=== PATIENT | female | born 1930 | race Caucasian/White ===

== ENCOUNTER 2017-07-29 17:34 | Emergency (ER) | payer OTHER, MEDICAID ==
[~2017-07-29] VITALS: Ht 162.6 cm; Wt 68.0 kg
[~2017-07-29 17:34] MED LIST: ALEN70TA3 PO; ASPI81TA44 PO; ATOR40TA PO; CALC-21 PO; CHOL200074 PO; IBUP200C76 PO; LEVO75TA7 PO; LIDOCAINE PATCH 5% TD; LISI1TAB13 PO; MELA1TAB2 SL; METF10002 PO; MIRT15TA7 PO; MULT-67 PO; OMEP20TA5 PO; UBID200C13 PO; [UNRECOGNIZED DRUG - OTHER] PO
[2017-07-29] MEDS ORDERED: ASPI-605 PO (18:10)
[2017-07-29] MEDS ORDERED: BIFI10.5 PO (18:10)
[2017-07-29] MEDS ORDERED: TRAM50TA2 PO (18:10)
[2017-07-29] MEDS ORDERED: LIDO30AD10 TD (18:10)
[2017-07-29] MEDS ORDERED: CYAN100T3 PO (18:10)
[2017-07-29] MEDS ORDERED: SENN8.6T60 PO (18:10)
[2017-07-29 18:19] LABS: BASOPHILS % (AUTO) 0.4 % (0.0-2.0); EOSINOPHILS # (AUTO) 0.1 K/uL (0.0-0.7); EOSINOPHILS % (AUTO) 0.6 % (0.0-7.0); HEMATOCRIT 40.3 % (37-47); HEMOGLOBIN 13.4 G/DL (12.0-16.0); LYMPHOCYTES # (AUTO) 0.9 K/UL (0.8-4.8); LYMPHOCYTES % (AUTO) 8.3 % (20.5-51.5); MEAN CORPUSCULAR HEMOGLOBIN 29.6 UUG (27.0-31.0); MEAN CORPUSCULAR HGB CONC 33 g/dL (32.0-37.0); MEAN CORPUSCULAR VOLUME 88.8 FL (81.0-99.0); MONOCYTES # (AUTO) 1.3 K/UL (0.1-1.30); MONOCYTES % (AUTO) 11.3 % (0.0-11.0); NEUTROPHILS # (AUTO) 8.9 K/UL (1.8-8.9); NEUTROPHILS % (AUTO) 79.4 % (38.5-71.5); PLATELET COUNT (AUTO) 156 K/UL (150-450); RED BLOOD CELL COUNT(AUTO) 4.53 MIL/UL (4.2-5.4); WHITE BLOOD COUNT (AUTO) 11.2 K/UL (4.0-11.2)
[2017-07-29 18:32] LABS: CARBON DIOXIDE 24 mmol/L (21-32); CHLORIDE 92 mmol/L (98-107); CREATININE 0.9 mg/dL (0.6-1.3); GLUCOSE 214 mg/dL (74-106); POTASSIUM 3.9 mmol/L (3.5-5.1); UREA NITROGEN, BLOOD 15 mg/dL (7-18)
[2017-07-29 18:38] LABS: ALANINE AMINOTRANSFERASE 35 U/L (14-59); ALKALINE PHOSPHATASE 52 U/L (50-136); ASPARTATE AMINOTRANSFERASE 33 U/L (15-37); BILIRUBIN,DIRECT 0.1 mg/dL (0.0-0.2); BILIRUBIN,TOTAL 0.4 mg/dL (0.2-1.0); LIPASE 80 U/L (73-393); TOTAL PROTEIN, SERUM 7.2 g/dL (6.4-8.2)
--- NOTE | 2017-07-29 20:11 | NUR ---
PATIENT IN ROOM WITH NO DISTRESS NOTED. WAITING FOR PENDING CT RESULT
--- NOTE | 2017-07-29 21:20 | NUR ---
CALLED [facility] SPOKE WITH MARYANN. MERLENE ROBLES WILL CALL BACK DR HUTCHINSON
--- NOTE | 2017-07-29 22:06 | NUR ---
Humble from [facility] called and was given updated v/s. Miah to call back with transfer information
--- NOTE | 2017-07-29 23:01 | NUR ---
CALLED [facility] AND SPOKE WITH KAMERON. PATIENT WILL BE GOING TO [facility] [place] ROOM [address] PHONE # [phone]. ACCEPTING MD IS Cira PIERCE. ETA OF [facility] IS [id number]
--- NOTE | 2017-07-30 00:09 | NUR ---
GAVE SBAR REPORT TO ARLYN AL [phone] [facility]
--- NOTE | 2017-07-30 00:19 | NUR ---
GAVE SBAR REPORT TO [facility] TEAM WHO WILL TAKE PATIENT TO [place]
== END 2017-07-30 00:28 | disposition short-term general hospital (02) ==
LOC: ER 17:36
DX: K57.30 Diverticulosis of large intestine without perforation or abscess without bleeding (principal); E86.0 Dehydration; R11.10 Vomiting, unspecified; R74.0 Nonspecific elevation of levels of transaminase and lactic acid dehydrogenase [LDH]; I10 Essential (primary) hypertension; E78.5 Hyperlipidemia, unspecified; E11.9 Type 2 diabetes mellitus without complications; E03.9 Hypothyroidism, unspecified; Z79.82 Long term (current) use of aspirin
CPT/HCPCS: 36415; 70030-TC; 71010; 83605; 83690; 85025; 85730; 87040; 93005; A4663; J2405; J7030; J7040